=== PATIENT | male | born 1990 | race African-American/Black ===

== ENCOUNTER 2021-03-20 17:26 | Emergency (ER) | payer OTHER ==
[~2021-03-20] VITALS: Ht 165.1 cm; Wt 104.3 kg
[2021-03-20 17:33] VITALS: BP 153/105
[2021-03-21] MEDS ORDERED: CEPHALEXIN500 MG PO (12:19)
== END 2021-03-20 18:00 | disposition left against medical advice (07) ==
LOC: ER 17:26
DX: S40.862A Insect bite (nonvenomous) of left upper arm, initial encounter (principal); Z53.21 Procedure and treatment not carried out due to patient leaving prior to being seen by health care provider; W57.XXXA Bitten or stung by nonvenomous insect and other nonvenomous arthropods, initial encounter; Y93.89 Activity, other specified; Y92.89 Other specified places as the place of occurrence of the external cause; Y99.8 Other external cause status

== ENCOUNTER 2021-03-21 12:02 | Emergency (ER) | payer OTHER ==
[~2021-03-21] VITALS: Ht 165.1 cm; Wt 106.6 kg
[2021-03-21 12:07] VITALS: BP 166/86
[2021-03-21] MEDS ORDERED: CEPHALEXIN500 MG PO (12:19)
== END 2021-03-21 12:36 | disposition home or self-care (01) ==
LOC: ER 12:02
DX: S40.862A Insect bite (nonvenomous) of left upper arm, initial encounter (principal); W57.XXXA Bitten or stung by nonvenomous insect and other nonvenomous arthropods, initial encounter; G47.00 Insomnia, unspecified; F41.9 Anxiety disorder, unspecified; Z87.891 Personal history of nicotine dependence; Y93.89 Activity, other specified; Y92.89 Other specified places as the place of occurrence of the external cause; Y99.8 Other external cause status